=== PATIENT | male | born 1950 | race African-American/Black ===

== ENCOUNTER → 2020-05-27 | Outpatient (CLI) | payer MEDICARE, OTHER ==
--- NOTE | 2020-05-27 18:41 | RAD ---
Abdominal MRI with MRCP INDICATION: Abnormal abdominal ultrasound which was performed because of elevated liver function tests and microscopic hematuria. Choledocholithiasis was passed and on that examination. COMPARISON: Abdominal ultrasound of 05/16/2020. TECHNIQUE: Multiplanar multisequence MR imaging of the abdomen was performed without IV contrast. 3-D MIP reformatted images were obtained as part of the MRCP protocol. FINDINGS: Included lung bases are unremarkable. The liver shows minimal signal drop-off on opposed phase imaging, suggesting mild if any fatty infiltration. No liver masses identified. There is intra and extrahepatic biliary dilation with the common duct at the duran hepatis measuring 1.7 cm in diameter. There is at least one filling defect in the distal common duct, best seen on axial image 22 of series 7 measuring 1.4 cm in diameter that is consistent with a distal common bile duct stone. The gallbladder is stone filled and contracted. No pericholecystic soft tissue stranding is demonstrated. No ascites. The MRCP images show both dilation of the intra and extrahepatic biliary tree as well as an apparent cut off of the common bile duct near the pancreatic head, corresponding with the filling defect seen on the abdominal MRI. Beyond this ovoid filling defect in the distal common duct, the common bile duct appears normal in caliber (image 47 of series 13). Remaining solid abdominal organs show normal-sized spleen, and normal pancreas, adrenal glands and right kidney with mild bilateral perirenal soft tissue stranding noted. There is a tiny left renal cortical cyst that requires no additional imaging follow-up but there is a filling defect in the left renal pelvis (image 28 of series 7) at the very edge of the [id number] that is equivocal for small focus of gas or kidney stone. This can be correlated with CT or follow-up ultrasound. Abdominal aorta and IVC are unremarkable. No adenopathy or mass identified. IMPRESSION: 1. Cholelithiasis and choledocholithiasis with biliary obstruction from a large 1.4 cm stone in the distal common bile duct. 2. Possible stone in the left renal pelvis. Consider correlation with CT or follow-up ultrasound. Electronically signed by: Chantelle Mcmullen MD (05/27/2020 6:38 PM) [id number]
== END ==
LOC: MRI 08:27
PROVIDERS: ATTEND Internal Medicine Gastroenterology
DX: K80.20 Calculus of gallbladder without cholecystitis without obstruction (principal); R93.5 Abnormal findings on diagnostic imaging of other abdominal regions, including retroperitoneum
CPT/HCPCS: 74181